=== PATIENT | male | born 1940 | race Caucasian/White ===

== ENCOUNTER 2019-04-09 14:04 | Inpatient (IN) ==
[2019-04-09] MEDS ORDERED: ACETAMINOPHEN 325 MG TABLET PO PRN (14:11)
[2019-04-09] MEDS ORDERED: ONDANSETRON 4 MG/2 ML VIAL IV PRN (14:11)
[2019-04-09] MEDS ORDERED: MAGNESIUM SULF RIDER 2 GM in PREMIX 1 EACH IV PRN (14:11)
[2019-04-09] MEDS ORDERED: DOCUSATE SODIUM 100 MG CAPSULE PO PRN (14:11)
[2019-04-09] MEDS ORDERED: MAGNESIUM SULF RIDER 4 GM in PREMIX 1 EACH IV PRN (14:11)
[2019-04-09] MEDS ORDERED: ZALEPLON 5 MG CAPSULE PO PRN (14:11)
[2019-04-09] MEDS ORDERED: MORPHINE 4 MG/1 ML VIAL IV PRN (14:11)
[2019-04-09] MEDS ORDERED: SODIUM CHLORIDE 0.9% 1,000 ML IV SCH (14:12)
[2019-04-09] MEDS ORDERED: ASPIRIN CHEW 81 MG TABLET PO ONE (14:17)
[2019-04-09] MEDS ORDERED: INFLUENZA VIRUS VACCINE 0.5 ML SYRINGE IM ONE (14:46)
[2019-04-09] MEDS ORDERED: METOPROLOL TARTRATE 25 MG TABLET PO SCH (15:06)
[2019-04-09] MEDS: PANTOPRAZOLE 40 MG TABLET PO SCH (15:07)
[2019-04-09 15:16] LABS: Basophils # 0.1 10*3/uL (0.0-0.2); Eosinophils # 0.6 10*3/uL (0.0-0.87); Eosinophils % 4.8 % (0.00-10.9); Hemoglobin 16.9 GM/DL (14.0-18.0); Immature Granulocytes % 0.8 %; Lymphocytes # 2.8 10*3/uL (1.4-4.0); Lymphocytes % 22.9 % (21.2-54.2); Mean Corpuscular HGB Conc 33.1 GM/DL (32-36); Mean Corpuscular Volume 97.3 FL (87-102); Monocytes % 11.2 % (1.7-12.7); Neutrophils % 59.3 % (38.7-73.9); Platelet Count 266 T/CUMM (130-400); Red Blood Count 5.24 MC/CUMM (3.8-5.5); Red Cell Distribution Width 12.8 % (9.3-17.3); White Blood Count 12.2 T/CUMM (4-12)
[2019-04-09 15:25] LABS: PT Patient Result 10.5 SECS (9.6-12.2)
[2019-04-09] MEDS ORDERED: dilTIAZem Drip 125 MG/125 ML PREMIX IV SCH (15:30)
[2019-04-09 15:41] LABS: Albumin 3.4 G/DL (3.4-5.0); Bilirubin,Total 1.1 MG/DL (0.2-1.0); Calcium 9.4 MG/DL (8.5-10.1); Osmolality,Calculated 286.1 MOS/KG (273-304); Total Protein 6.7 G/DL (6.4-8.3)
[2019-04-09 15:49] LABS: Troponin I 0.191 NG/ML (0.00-0.045)
[2019-04-09] MEDS: SOTALOL 80 MG TABLET PO SCH ×2 (15:49→20:42)
[2019-04-09] MEDS: POTASSIUM CHLORIDE 20 MEQ TABLET PO PRN ×2 (16:26→18:34)
[2019-04-09] MEDS: INSULIN REGULAR 100 UNIT/ML SUBCUT SCH ×2 (17:32→21:15)
[2019-04-09] MEDS ORDERED: NITROGLYCERIN 2% OINT 1 INCH/GM PACK TOP SCH (18:00)
[2019-04-09 18:07] LABS: Troponin I 0.304 NG/ML (0.00-0.045)
[2019-04-09] MEDS: APIXABAN 5 MG TABLET PO SCH (20:42)
[2019-04-09] MEDS: gemfibroziL 600 MG TABLET PO SCH (20:42)
[2019-04-09] MEDS ORDERED: ENOXAPARIN 40 MG/0.4 ML SYRINGE SUBCUT SCH (21:00)
[2019-04-09 21:10] LABS: Troponin I 0.267 NG/ML (0.00-0.045)
[2019-04-09] MEDS: BIMATOPROST 0.01% OPH SOLN 2.5 ML BOTTLE BOTH EYES SCH (21:16)
[2019-04-10 04:29] LABS: Basophils # 0.1 10*3/uL (0.0-0.2); Basophils % 1.1 % (0.0-0.8); Eosinophils # 0.7 10*3/uL (0.0-0.87); Eosinophils % 6.7 % (0.00-10.9); Hematocrit 42.9 VOL% (42.0-52.0); Hemoglobin 14.2 GM/DL (14.0-18.0); Immature Granulocytes % 0.7 %; Immature Granulocytes Absolute 0.07 #; Lymphocytes # 2.5 10*3/uL (1.4-4.0); Lymphocytes % 23.8 % (21.2-54.2); Mean Corpuscular HGB Conc 33.1 GM/DL (32-36); Mean Corpuscular Volume 97.9 FL (87-102); Mean Platelet Volume 10.1 FL (9.6-12.0); Monocytes % 11.7 % (1.7-12.7); Platelet Count 210 T/CUMM (130-400); Red Blood Count 4.38 MC/CUMM (3.8-5.5); Red Cell Distribution Width 12.9 % (9.3-17.3); White Blood Count 10.6 T/CUMM (4-12)
[2019-04-10 04:35] LABS: Osmolality,Calculated 290.1 MOS/KG (273-304); Risk Ratio 3.22
[2019-04-10] MEDS: INSULIN REGULAR 100 UNIT/ML SUBCUT SCH ×4 (08:58→21:04)
[2019-04-10] MEDS: LISINOPRIL/HCTZ 20-12.5 MG TABLET PO SCH (08:59)
[2019-04-10] MEDS: PANTOPRAZOLE 40 MG TABLET PO SCH (08:59)
[2019-04-10] MEDS: EZETIMIBE 10 MG TABLET PO SCH (08:59)
[2019-04-10] MEDS: ASPIRIN EC 81 MG TABLET PO SCH (08:59)
[2019-04-10] MEDS: SIMVASTATIN 80 MG TABLET PO SCH (08:59)
[2019-04-10] MEDS: MULTIVITAMIN (OCUVITE) TABLET PO SCH (09:00)
[2019-04-10] MEDS: allopurinoL 300 MG TABLET PO SCH (09:00)
[2019-04-10] MEDS: gemfibroziL 600 MG TABLET PO SCH ×2 (09:00→20:59)
[2019-04-10] MEDS: MULTIVITAMIN (CENTRUM) TABLET PO SCH (09:00)
[2019-04-10] MEDS: APIXABAN 5 MG TABLET PO SCH ×2 (09:00→20:59)
[2019-04-10] MEDS: SOTALOL 80 MG TABLET PO SCH ×2 (09:00→20:59)
[2019-04-10] MEDS ORDERED: CLOPIDOGREL 75 MG TABLET PO SCH (09:00)
[2019-04-10] MEDS: BIMATOPROST 0.01% OPH SOLN 2.5 ML BOTTLE BOTH EYES SCH (21:02)
[2019-04-11 05:09] LABS: Basophils # 0.1 10*3/uL (0.0-0.2); Basophils % 0.8 % (0.0-0.8); Eosinophils # 0.5 10*3/uL (0.0-0.87); Eosinophils % 4.5 % (0.00-10.9); Hematocrit 42.5 VOL% (42.0-52.0); Immature Granulocytes % 0.6 %; Immature Granulocytes Absolute 0.07 #; Lymphocytes # 2.2 10*3/uL (1.4-4.0); Lymphocytes % 19.4 % (21.2-54.2); Mean Corpuscular HGB Conc 32.9 GM/DL (32-36); Mean Corpuscular Volume 98.2 FL (87-102); Mean Platelet Volume 9.9 FL (9.6-12.0); Monocytes % 11.6 % (1.7-12.7); Neutrophils % 63.1 % (38.7-73.9); Platelet Count 188 T/CUMM (130-400); Red Blood Count 4.33 MC/CUMM (3.8-5.5); Red Cell Distribution Width 12.7 % (9.3-17.3); White Blood Count 11.1 T/CUMM (4-12)
[2019-04-11 05:28] LABS: Calcium 8.6 MG/DL (8.5-10.1); Osmolality,Calculated 290.3 MOS/KG (273-304)
[2019-04-11 07:59] VITALS: BP 123/62
[2019-04-11] MEDS: INSULIN REGULAR 100 UNIT/ML SUBCUT SCH (08:09)
[2019-04-11] MEDS: LISINOPRIL/HCTZ 20-12.5 MG TABLET PO SCH (08:23)
[2019-04-11] MEDS: ASPIRIN EC 81 MG TABLET PO SCH (08:23)
[2019-04-11] MEDS: MULTIVITAMIN (CENTRUM) TABLET PO SCH (08:24)
[2019-04-11] MEDS: gemfibroziL 600 MG TABLET PO SCH (08:24)
[2019-04-11] MEDS: SOTALOL 80 MG TABLET PO SCH (08:24)
[2019-04-11] MEDS: APIXABAN 5 MG TABLET PO SCH (08:24)
[2019-04-11] MEDS: MULTIVITAMIN (OCUVITE) TABLET PO SCH (08:25)
[2019-04-11] MEDS: PANTOPRAZOLE 40 MG TABLET PO SCH (08:25)
[2019-04-11] MEDS: EZETIMIBE 10 MG TABLET PO SCH (08:25)
[2019-04-11] MEDS: allopurinoL 300 MG TABLET PO SCH (08:26)
[2019-04-11] MEDS: SIMVASTATIN 80 MG TABLET PO SCH (08:26)
== END 2019-04-11 09:18 | disposition home or self-care (01) | DRG 310 ==
LOC: N.TELES
PROVIDERS: ADMIT Internal Medicine Cardiovascular Disease; ATTEND Internal Medicine Cardiovascular Disease